=== PATIENT | female | born 1990 | race Caucasian/White ===

== ENCOUNTER 2017-05-31 17:36 | Emergency (ER) | payer OTHER ==
[~2017-05-31] VITALS: Ht 154.9 cm; Wt 63.7 kg
[2017-05-31 18:04] VITALS: BP 102/71
[2017-05-31 18:45] LABS: BASOPHILS # (AUTO) 0.4 K/uL (0.00-0.22); EOSINOPHILS # (AUTO) 0.2 K/uL (0-0.4); HEMATOCRIT 41.5 % (36-48); HEMOGLOBIN 13.8 g/dL (12.0-16.0); LYMPHOCYTES # (AUTO) 2.7 K/uL (2.5-16.5); MEAN CORPUSCULAR HEMOGLOBIN 30 pg (27-31); MEAN CORPUSCULAR HGB CONC 33 g/dL (33-37); MEAN CORPUSCULAR VOLUME 89 fL (80-94); MONOCYTES # (AUTO) 0.7 K/uL (0.8-1.0); NEUTROPHILS # (AUTO) 6.1 K/uL (1.8-7.7); PLATELET COUNT (AUTO) 310 K/uL (140-450); RED BLOOD CELL COUNT(AUTO) 4.64 MIL/uL (4.20-5.40); WHITE BLOOD COUNT (AUTO) 10.1 K/uL (4.8-10.8)
[2017-05-31 18:58] LABS: APPEARANCE,URINE CLEAR (CLEAR); BILIRUBIN,URINE NEGATIVE (NEGATIVE); BLOOD, URINE NEGATIVE (NEGATIVE); COLOR,URINE YELLOW (YELLOW); LEUKOCYTE ESTERASE ,URINE NEGATIVE (NEGATIVE); NITRITE, URINE NEGATIVE (NEGATIVE); PROTEIN,URINE NEGATIVE (NEGATIVE); UGLUCOSE NEGATIVE (NEGATIVE); UROBILINOGEN,URINE 0.2 EU/dL (0.2 - 1)
[2017-05-31 19:07] LABS: ALBUMIN 4.1 g/dL (3.4-5.0); ANION GAP 9.4 (8-16); CARBON DIOXIDE 28.5 mmol/L (21-32); CREATININE 0.7 mg/dL (0.6-1.3); POTASSIUM 3.9 mmol/L (3.5-5.1); TOTAL BILIRUBIN 0.3 mg/dL (0.0-1.0)
--- NOTE | 2017-05-31 19:25 | NUR ---
PT TAKEN TO BED 5
--- NOTE | 2017-05-31 19:30 | NUR ---
26F BIB SELF C/O RT INGUINAL PAIN, RADIATES TO RT LOWER BACK, STABBING, 4/10 X 3 DAYS; PT STATES NO TRAUMA OR INJURY TO SITE AT THIS TIME; PT STATES " I THINK IT'S FROM MY IUD"; PT STATES HAS SCANT VAGINAL SPOTTING X 1 MONTH, STATES NO CLOTTS AT THIS TIME; PT STATES NO DYSURIA, BURNING, OR URINARY FREQUENCY AT THIS TIME; PT STATES NO N/V/D AT THIS TIME; ABDOMEN SOFT, FLAT, NON-TENDER, ACTIVE BOWEL SOUNDS X 4 QUADRANTS; PT AA&OX4, PERRLA, BL LUNG SOUNDS CLEAR, RR EVEN/UNLABORED, SKIN IS WARM/DRY/INTACT AT THIS TIME; STEADY GAIT; PT RESTING IN BED W/ HOB ELEVATED AND IN LOWEST POSITION; POSITIONED FOR COMFORT; ER MD MADE AWARE OF STATUS. WILL CONTINUE TO MONITOR.
--- NOTE | 2017-05-31 19:50 | NUR ---
Dr. Callahan evaluating patient at bedside.
--- NOTE | 2017-05-31 20:26 | NUR ---
PT RETURN FROM CT
[2017-05-31 21:12] VITALS: BP 110/71
--- NOTE | 2017-05-31 21:12 | NUR ---
Patient discharged with v/s stable. Written and verbal after care instructions given and explained. Patient alert, oriented and verbalized understanding of instructions. Ambulatory with steady gait. All questions addressed prior to discharge. ID band removed. Patient advised to follow up with PMD. Rx of MAGNESIUM CITRATE LOW SODIUM SOLUTION, MIRALAX POWDER FOR SOLUTION, AND COLACE 100MG CAP given. Patient educated on indication of medication including possible reaction and side effects. Opportunity to ask questions provided and answered.
[2017-06-03 09:02] LABS: CHLAMYDIA TRACHOMATIS AMP DNA NEGATIVE (NEGATIVE)
== END 2017-05-31 21:12 | disposition home or self-care (01) ==
LOC: MED 17:36
DX: K59.00 Constipation, unspecified (principal)
CPT/HCPCS: 36415; 72192; 76856; 80053; 81003; 81025; 83690; 85025; 87491; 99285